=== PATIENT | female | born 1985 | race Caucasian/White ===

== ENCOUNTER 2019-06-26 04:08 | Emergency (ER) | payer SELFPAY ==
[~2019-06-26] VITALS: Ht 160 cm; Wt 93.4 kg
[2019-06-26 04:22] VITALS: Ht 160 cm; Wt 93.4 kg
[2019-06-26 08:05] VITALS: BP 148/90
== END 2019-06-26 08:05 | disposition home or self-care (01) ==
LOC: ED 04:08
DX: R10.30 Lower abdominal pain, unspecified (principal); E66.9 Obesity, unspecified; Z68.36 Body mass index [BMI] 36.0-36.9, adult; Z90.49 Acquired absence of other specified parts of digestive tract